=== PATIENT | male | born 1965 | race African-American/Black ===

== ENCOUNTER 2023-12-21 11:56 | Outpatient (CLI) | payer BC, OTHER, SELFPAY ==
--- NOTE | ~2023-12-21 | MR_ITS ---
EXAMINATION: MR shoulder LT wo con DATE: 12/21/2023 12:18 INDICATION: Acute pain of left shoulder. TECHNIQUE: Magnetic resonance imaging (MRI) of the left shoulder was performed without intravenous co ntrast. Sequences included axial PD-weighted FS FSE, coronal oblique PD-weighted FS FSE and T2-weight ed FS FSE, and sagittal oblique T2-weighted FS FSE and T1-weighted FSE. COMPARISON: None. FINDINGS: Coracoacromial arch: The acromion undersurface is curved in morphology (type II). There is remodeling of the undersurface of the acromion. There is severe osteoarthritis of acromioclavicular joint. There is severe subacromi al/subdeltoid bursitis. Rotator cuff: There is a full-thickness tear involving supraspinatus and infraspinatus tendons measuring 4.5 cm ant erior to posterior by 5.8 cm proximal to distal. There is mild fatty atrophy of supraspinatus muscle belly and moderate fatty atrophy of supraspinatus muscle belly. There is increased T2-weighted signal intensity in these muscle bellies, consistent with subacute denervation. Teres minor tendon is salina l. There is mild subscapularis tendinopathy. Biceps tendon and glenoid labrum: Biceps tendon is in bicipital groove. There is mild intra-articular biceps tendinopathy. There is deg enerative tearing of the glenoid labrum. Fluid: There is a large glenohumeral joint effusion. Bones/cartilage: Glenoid cartilage is normal. There is cortical remodeling of superolateral humeral head, consistent w ith cuff arthropathy. There is partial-thickness cartilage loss of humeral head medially. IMPRESSION: 1. Massive full-thickness rotator cuff tear with cuff arthropathy. 2. Severe osteoarthritis of acromioclavicular joint. 3. Large glenohumeral joint effusion and severe subacromial/subdeltoid bursitis. 4. Mild glenohumeral joint chondrosis. Reviewed, dictated and finalized at location A. [facility] IMPRESSION: 1. Massive full-thickness rotator cuff tear with cuff arthropathy. 2. Severe osteoarthritis of acromioclavicular joint. 3. Large glenohumeral joint effusion and severe subacromial/subdeltoid bursitis . 4. Mild glenohumeral joint chondrosis.
== END 2023-12-21 11:57 | disposition home or self-care (01) ==
LOC: ANHIMG 12:00
PROVIDERS: Visit Provider Physician Assistant
DX: M25.512 Pain in left shoulder (principal); G89.11 Acute pain due to trauma; S46.012A Strain of muscle(s) and tendon(s) of the rotator cuff of left shoulder, initial encounter; M19.012 Primary osteoarthritis, left shoulder; M25.412 Effusion, left shoulder; M93.811 Other specified osteochondropathies, right shoulder
CPT/HCPCS: 73221